=== PATIENT | female | born 1970 | race Two or more races ===

== ENCOUNTER 2020-07-24 14:56 | Emergency (ER) | payer OTHER ==
[~2020-07-24] VITALS: Ht 170.2 cm; Wt 86.2 kg
[~2020-07-24 14:56] MED LIST: ADVAIR HFA 45/212 GM IH; KETO10TA2 PO; VIBRA-TABS100 MG PO
[2020-07-24] MEDS ORDERED: NEXIUM40 M1 PO (15:32)
[2020-07-24] MEDS ORDERED: HYZAAR 100-251 EACH PO (15:32)
[2020-07-25] MEDS ORDERED: TOPROL XL25 M1 (09:21)
[2020-07-25] MEDS ORDERED: NEURONTIN300 MG (09:21)
== END 2020-07-24 21:49 | disposition home or self-care (01) ==
LOC: ER 14:56
DX: M79.661 Pain in right lower leg (principal)

== ENCOUNTER → 2020-07-25 | Emergency (ER) | payer OTHER ==
[~2020-07-25] VITALS: Ht 170.2 cm; Wt 86.2 kg
[~2020-07-25] MED LIST changes: +HYZAAR 100-251 EACH PO; +NEURONTIN300 MG; +NEXIUM40 M1 PO; +TOPROL XL25 M1
== END | disposition left against medical advice (07) ==
LOC: ER 09:11
DX: M79.661 Pain in right lower leg (principal)

== ENCOUNTER 2021-10-31 14:56 | Emergency (ER) | payer OTHER ==
[~2021-10-31] VITALS: Ht 167.6 cm; Wt 71.2 kg
[2021-10-31] MEDS ORDERED: NORFLEX100MG PO (18:14)
[2021-10-31] MEDS ORDERED: KETO10TA2 PO (18:14)
== END 2021-10-31 19:19 | disposition home or self-care (01) ==
LOC: ER 14:56
DX: S30.0XXA Contusion of lower back and pelvis, initial encounter (principal); S10.93XA Contusion of unspecified part of neck, initial encounter; S40.012A Contusion of left shoulder, initial encounter; S40.011A Contusion of right shoulder, initial encounter; V49.9XXA Car occupant (driver) (passenger) injured in unspecified traffic accident, initial encounter; Y92.414 Local residential or business street as the place of occurrence of the external cause

== ENCOUNTER 2022-11-22 11:26 | Emergency (ER) | payer OTHER ==
[~2022-11-22] VITALS: Ht 170.2 cm; Wt 69.4 kg
[~2022-11-22 11:26] MED LIST changes: +NORFLEX100MG PO
[2022-11-22] MEDS ORDERED: HYZAAR 100-251 EACH PO (11:55)
[2022-11-22] MEDS ORDERED: NORFLEX100MG PO (14:51)
[2022-11-22] MEDS ORDERED: KETO10TA2 PO (14:51)
== END 2022-11-22 14:57 | disposition home or self-care (01) ==
LOC: ER 11:26
DX: S30.0XXA Contusion of lower back and pelvis, initial encounter (principal); W18.30XA Fall on same level, unspecified, initial encounter; Y93.89 Activity, other specified; Y92.013 Bedroom of single-family (private) house as the place of occurrence of the external cause; Y99.9 Unspecified external cause status; I10 Essential (primary) hypertension

== ENCOUNTER 2023-06-12 08:57 | Emergency (ER) | payer OTHER ==
[~2023-06-12] VITALS: Ht 170.2 cm; Wt 70.3 kg
== END 2023-06-12 16:02 | disposition home or self-care (01) ==
LOC: ER 08:58
DX: S09.8XXA Other specified injuries of head, initial encounter (principal); V49.9XXA Car occupant (driver) (passenger) injured in unspecified traffic accident, initial encounter; Y93.9 Activity, unspecified; Y92.89 Other specified places as the place of occurrence of the external cause; Y99.9 Unspecified external cause status; I10 Essential (primary) hypertension

== ENCOUNTER 2025-02-08 11:45 | Emergency (ER) | payer OTHER ==
[~2025-02-08] VITALS: Ht 167.6 cm; Wt 74.8 kg
[2025-02-08] MEDS ORDERED: MICARDIS20 MG (11:51)
[2025-02-08] MEDS ORDERED: ROSUVASTATIN CAL5 MG PO (11:52)
[2025-02-08] MEDS ORDERED: KETOROLAC TROMETHAMINE 30 MG VIAL IV ONE (12:30)
[2025-02-08] MEDS ORDERED: CIPROFLOXACIN IN 5 % DEXTROSE 400 MG/200 ML PIGGYBAG IV ONE ×2 (12:30→12:32)
[2025-02-08] MEDS ORDERED: KETOROLAC TROMETHAMINE 30 MG VIAL ONE (12:32)
[2025-02-08 13:13] LABS: BASO % 0.7 % (0.1-1.2); EOS # 0.11 (0.04-0.54); EOS % 1.4 % (0.7-7.0); HEMATOCRIT 42.4 % (34.1-44.9); HEMOGLOBIN 13.9 g/dL (11.2-15.7); LYMPH # 1.78 (1.18-3.74); LYMPH % 23.5 % (19.3-53.1); MONO # 0.52 (0.24-0.82); MONO % 6.9 % (4.7-12.5); NEUT # 5.11 (1.56-6.13); NEUT % 67.2 % (34.0-71.1); PLATELET COUNT 448 K/uL (163-369); RED BLOOD COUNT 4.48 M/uL (3.93-5.22); RED CELL DISTRIBUTION WIDTH 13.3 % (11.6-14.4)
[2025-02-08 13:34] LABS: CALCIUM 9.9 mg/dL (8.5-10.1); CREATININE SERUM 0.56 mg/dL (0.55-1.02); GFR 113.24; POTASSIUM 3.96 mEq/L (3.5-5.1)
[2025-02-08 14:14] LABS: PH,URINE 6.5 (5.0-8.0); URINE APPEARANCE Cloudy; URINE BILIRRUBIN Negative (NEGATIVE); URINE BLOOD Small; URINE COLOR Yellow; URINE GLUCOSE Negative (NEGATIVE); URINE KETONE Negative (NEGATIVE); URINE LEUKOCYTE Large; URINE NITRATE Negative; URINE PROTEIN Negative (NEGATIVE); URINE UROBILINOGEN 0.2 E.U./dl
[2025-02-08 14:18] LABS: URINE EPITHELIAL CELLS 10.1 uL (0.0-38.8); URINE WBC 2085.3 uL (0.0-23.2)
[2025-02-08 14:20] LABS: URINE BACTERIA > 9821.5 uL (0.0-1933)
== END 2025-02-08 15:53 | disposition home or self-care (01) ==
LOC: ER 11:59
PROVIDERS: General Practice
DX: N39.0 Urinary tract infection, site not specified (principal); I10 Essential (primary) hypertension

== ENCOUNTER 2025-02-10 11:41 | Inpatient (IN) | payer OTHER ==
[~2025-02-10] VITALS: Ht 167.6 cm; Wt 77.1 kg
[~2025-02-10 11:41] MED LIST changes: +MICARDIS20 MG; +ROSUVASTATIN CAL5 MG PO
[2025-02-10] MEDS ORDERED: 0.9 % SODIUM CHLORIDE 1,000 ML IV STA (13:58)
[2025-02-10] MEDS ORDERED: FAMOTIDINE/PF 20 MG in 0.9 % SODIUM CHLORIDE 8 ML IV PUSH STA (13:58)
[2025-02-10] MEDS ORDERED: ONDANSETRON HCL 2 MG/ML VIAL IV STA (13:58)
[2025-02-10] MEDS ORDERED: FAMOTIDINE/PF 20 MG/2 ML VIAL ONE (14:32)
[2025-02-10] MEDS ORDERED: ONDANSETRON HCL 2 MG/ML VIAL ONE (14:32)
[2025-02-10 14:48] LABS: BASO % 0.6 % (0.1-1.2); EOS # 0.07 (0.04-0.54); EOS % 1.1 % (0.7-7.0); HEMATOCRIT 40.7 % (34.1-44.9); HEMOGLOBIN 13.5 g/dL (11.2-15.7); LYMPH # 2.07 (1.18-3.74); LYMPH % 32.2 % (19.3-53.1); MEAN CORPUSCULAR HEMOGLOBIN 31.2 pg (25.6-32.2); MONO # 0.47 (0.24-0.82); MONO % 7.3 % (4.7-12.5); NEUT # 3.75 (1.56-6.13); NEUT % 58.5 % (34.0-71.1); PLATELET COUNT 463 K/uL (163-369); RED BLOOD COUNT 4.33 M/uL (3.93-5.22); RED CELL DISTRIBUTION WIDTH 13.2 % (11.6-14.4)
[2025-02-10 14:53] LABS: PH,URINE 5.5 (5.0-8.0); URINE APPEARANCE Clear; URINE BILIRRUBIN Negative (NEGATIVE); URINE BLOOD Negative; URINE COLOR Dark Yellow; URINE GLUCOSE Negative (NEGATIVE); URINE KETONE Negative (NEGATIVE); URINE LEUKOCYTE Negative; URINE NITRATE Negative; URINE PROTEIN Negative (NEGATIVE); URINE UROBILINOGEN 0.2 E.U./dl
[2025-02-10 14:57] LABS: CALCIUM 9.6 mg/dL (8.5-10.1); CREATININE SERUM 0.65 mg/dL (0.55-1.02); GFR 95.35; POTASSIUM 3.73 mEq/L (3.5-5.1)
[2025-02-10 14:59] LABS: URINE BACTERIA 12.2 uL (0.0-1933); URINE EPITHELIAL CELLS 7.7 uL (0.0-38.8); URINE RBC 16.6 uL (0.0-20.8); URINE WBC 2.5 uL (0.0-23.2)
[2025-02-10] MEDS ORDERED: CIPROFLOXACIN IN 5 % DEXTROSE 400 MG/200 ML PIGGYBAG IV ONE ×2 (15:45→15:58)
[2025-02-10] MEDS ORDERED: 0.9 % SODIUM CHLORIDE 1,000 ML IV SCH (18:45)
[2025-02-10] MEDS ORDERED: ACETAMINOPHEN 500 MG GEL..CAP PO PRN (18:45)
[2025-02-10] MEDS ORDERED: ONDANSETRON HCL 4 MG in 0.9 % SODIUM CHLORIDE 50 ML IV PRN (18:45)
[2025-02-10] MEDS ORDERED: PHENAZOPYRIDINE HCL 100 MG TABLET PO SCH (18:45)
[2025-02-10] MEDS ORDERED: MEROPENEM 500 MG/VIAL VIAL IV SCH (20:00)
[2025-02-10 22:00] LABS: INR 1.01; PARTIAL THROMBOPLASTIN TIME 27.9 SECONDS (22.0-34.0)
[2025-02-11 02:45] VITALS: BP 129/69; O2SAT 96
[2025-02-11] MEDS ORDERED: GABAPENTIN 300 MG CAPSULE PO SCH (09:00)
[2025-02-11] MEDS ORDERED: ROSUVASTATIN CALCIUM 10 MG TABLET PO SCH (09:00)
[2025-02-11] MEDS ORDERED: LOSARTAN POTASSIUM 25 MG TABLET PO SCH (09:00)
[2025-02-11] MEDS ORDERED: FAMOTIDINE/PF 20 MG in 0.9 % SODIUM CHLORIDE 8 ML IV PUSH SCH (09:00)
[2025-02-11 09:04] VITALS: BP 96/58
[2025-02-11 16:58] VITALS: BP 100/66; O2SAT 100
[2025-02-11] MEDS ORDERED: CEFTRIAXONE SODIUM 2,000 MG VIAL IV SCH (17:00)
[2025-02-11] MEDS ORDERED: LACTOBACILLUS ACIDOPHILUS 1 CAP CAP PO SCH (17:00)
[2025-02-12 02:10] VITALS: BP 97/64; O2SAT 95
[2025-02-12 08:47] VITALS: BP 125/78
[2025-02-12 17:47] VITALS: BP 105/72; O2SAT 97
[2025-02-13 02:48] VITALS: BP 97/62; O2SAT 95
[2025-02-13 08:44] VITALS: BP 109/72; O2SAT 96
== END 2025-02-13 13:51 | disposition home or self-care (01) | DRG 690 ==
LOC: ER 11:41 → MEDJ 19:08
PROVIDERS: Emergency Medicine; General Practice; ADMIT Internal Medicine; ATTEND Internal Medicine
PROC: BW21YZZ Computerized Tomography (CT Scan) of Abdomen and Pelvis using Other Contrast (ICD-10-PCS; principal; 2025-02-10)
DX: N39.0 Urinary tract infection, site not specified (principal); Z16.24 Resistance to multiple antibiotics; E86.0 Dehydration; E78.5 Hyperlipidemia, unspecified; K21.9 Gastro-esophageal reflux disease without esophagitis; B96.1 Klebsiella pneumoniae [K. pneumoniae] as the cause of diseases classified elsewhere